=== PATIENT | female | born 1975 | race Two or more races ===

== ENCOUNTER 2024-11-28 12:45 | Inpatient (IN) | payer OTHER ==
[~2024-11-28] VITALS: Ht 165.1 cm; Wt 65.3 kg
[2024-11-28 14:48] VITALS: BP 125/81
[2024-11-28] MEDS ORDERED: LEVOTHYROXINE25 MCG PO (14:48)
[2024-12-08] MEDS ORDERED: SYNTHROID125 MCG (08:41)
[2024-12-08] MEDS ORDERED: POVIDONE-IODINE 118 ML BOTT TOP ONE (09:30)
[2024-12-08] MEDS ORDERED: CEFOXITIN SODIUM 2,000 MG VIAL IV ONE (09:30)
[2024-12-08] MEDS ORDERED: ONDANSETRON HCL 2 MG/ML VIAL IV ONE (11:15)
[2024-12-08] MEDS ORDERED: MORPHINE SULFATE 4 MG/ML VIAL IV ONE ×2 (11:15→11:45)
[2024-12-08] MEDS ORDERED: PROMETHAZINE HCL 25 MG/ML AMPUL IV SCH (12:00)
[2024-12-08] MEDS ORDERED: MORPHINE SULFATE 4 MG/ML CARTRIDGE IV SCH (12:00)
[2024-12-08 14:54] VITALS: BP 128/81
[2024-12-08 15:39] VITALS: BP 119/75
[2024-12-08 17:09] LABS: BASO % 0.2 % (0.1-1.2); EOS # 0.00 (0.04-0.54); EOS % 0.0 % (0.7-7.0); LYMPH # 0.70 (1.18-3.74); LYMPH % 3.7 % (19.3-53.1); MEAN PLATELET VOLUME 12.20 fl (9.4-12.4); MONO # 1.34 (0.24-0.82); MONO % 7.0 % (4.7-12.5); NEUT # 17.01 (1.56-6.13); NEUT % 88.8 % (34.0-71.1); RED CELL DISTRIBUTION WIDTH 12.7 % (11.6-14.4)
[2024-12-08 19:00] VITALS: BP 118/75
[2024-12-09 01:00] VITALS: BP 98/59
[2024-12-09] MEDS ORDERED: SIMETHICONE 125 MG CAPSULE PO SCH (05:00)
[2024-12-09] MEDS ORDERED: GABAPENTIN 300 MG CAPSULE PO SCH (05:00)
[2024-12-09 06:00] VITALS: BP 103/66
[2024-12-09 08:31] VITALS: BP 100/60
[2024-12-09] MEDS ORDERED: POLYETHYLENE GLYCOL 3350 17 GM BLIST.PACK PO SCH (09:00)
[2024-12-09 13:32] VITALS: BP 100/60
[2024-12-09 16:19] VITALS: BP 94/65
[2024-12-10] VITALS: BP 90/50
[2024-12-10] MEDS ORDERED: LEVOTHYROXINE SODIUM 25 MCG TABLET PO SCH (06:00)
[2024-12-10] MEDS ORDERED: SIMETHICONE125 M1 PO (06:42)
[2024-12-10] MEDS ORDERED: POLY119PG PO (06:42)
[2024-12-10] MEDS ORDERED: IBUPROFEN800 MG PO (06:42)
[2024-12-10] MEDS ORDERED: GABAPENTIN300 MG PO (06:42)
[2024-12-10 08:02] VITALS: BP 90/50
== END 2024-12-10 12:54 | disposition home or self-care (01) | DRG 743 ==
LOC: OB/GYN 12-08 08:29 → O/R 12-08 08:29 → OB/GYN 12-08 08:30
PROVIDERS: ADMIT Obstetrics & Gynecology; ATTEND Obstetrics & Gynecology
PROC: 0UT70ZZ Resection of Bilateral Fallopian Tubes, Open Approach (ICD-10-PCS; 2024-12-08)
PROC: 0UT90ZZ Resection of Uterus, Open Approach (ICD-10-PCS; principal; 2024-12-08 08:30)
DX: D25.1 Intramural leiomyoma of uterus (principal); N80.03 Adenomyosis of the uterus; N84.0 Polyp of corpus uteri